=== PATIENT | male | born 1980 | race Caucasian/White ===

== ENCOUNTER 2019-04-14 21:59 | Emergency (ER) | payer OTHER ==
[~2019-04-14] VITALS: Ht 177.8 cm; Wt 108.9 kg
[~2019-04-14 21:59] MED LIST: DAY TIME CO5 MG/5 ML; FLONASE 0.05%50 MCG NASAL; GUAIFENESIN-CODE5 ML PO; IBUPROFEN 800800 MG PO
[2019-04-14 23:11] LABS: URINE BILIRUBIN NEGATIVE (Negative); URINE BLOOD TRACE (Negative); URINE CLARITY CLEAR; URINE COLOR YELLOW; URINE GLUCOSE-RANDOM* 3+ (Negative); URINE KETONES TRACE (Negative); URINE LEUKOCYTES-REFLEX NEGATIVE (Negative); URINE NITRITE-REFLEX NEGATIVE (Negative); URINE PROTEIN (DIPSTICK) NEGATIVE (Negative); URINE SPECIFIC GRAVITY 1.025 (1.005-1.035); URINE UROBILINOGEN 0.2 E.U./dl (0.2-1.0)
[2019-04-14 23:16] LABS: URINE REDUCING SUBSTANCE >2 %
[2019-04-14 23:24] LABS: ABSOLUTE NEUTROPHILS 5.3 thou/uL (1.4-8.2); BASOPHILS 0.5 % (0.0-2.0); EOSINOPHILS 0.6 % (0.0-3.0); HEMATOCRIT 52.4 % (42.0-52.0); HEMOGLOBIN 17.8 gm/dL (14.0-18.0); LYMPHOCYTES 5.7 % (24.0-44.0); MCV 91.1 fL (80.0-100.0); MONOCYTES 9.2 % (1.0-8.0); PLATELET COUNT 142 thou/uL (150-400); RBC 5.75 mil/uL (4.50-6.00); RDW 12.8 % (10.5-14.5); WBC 6.3 thou/uL (4.0-11.0)
[2019-04-14 23:27] LABS: CALCIUM 9.3 mg/dL (8.5-10.1); CREATININE 1.1 mg/dL (0.7-1.3); POTASSIUM 3.9 mmol/L (3.5-5.1)
[2019-04-14 23:34] LABS: ALBUMIN 4.1 g/dL (3.4-5.0); TOTAL BILIRUBIN 0.7 mg/dL (<0.1-1.0); TOTAL PROTEIN 8.2 g/dL (6.4-8.2)
[2019-04-15] MEDS ORDERED: MUCINEX D ER 11 EACH PO (03:17)
[2019-04-15] MEDS ORDERED: TYLENOL WITH CO1 TA1 PO (03:17)
[2019-04-15] MEDS ORDERED: ZOFRAN ODT4 MG PO (03:17)
[2019-04-15] MEDS ORDERED: IBUPROFEN 800800 M1 PO (03:17)
[2019-04-15 03:21] VITALS: BP 132/67
== END 2019-04-15 03:26 | disposition home or self-care (01) ==
LOC: ER 21:59
PROVIDERS: Emergency Medicine
DX: J10.1 Influenza due to other identified influenza virus with other respiratory manifestations (principal); E66.9 Obesity, unspecified; Z68.34 Body mass index [BMI] 34.0-34.9, adult